=== PATIENT | male | born 1940 | race Two or more races ===

== ENCOUNTER 2025-01-15 06:39 | Emergency (ER) | payer OTHER ==
[~2025-01-15] VITALS: Ht 188 cm; Wt 116.6 kg
[2025-01-15 06:58] VITALS: TEMP 97.7
[2025-01-15 07:04] LABS: PLATELET COUNT (AUTO) 442 K/uL (150-450); RED BLOOD CELL COUNT(AUTO) 4.29 MIL/uL (4.5-6.0); RED CELL DISTRIBUTION WIDTH 14.4 % (11.5-15.0); WHITE BLOOD COUNT (AUTO) 8.7 K/uL (4.3-11.0)
[2025-01-15 07:15] LABS: CALCIUM, SERUM 8.5 mg/dL (8.5-10.1); CREATININE 2.9 mg/dL (0.6-1.3); INR 1.01 (0.91-1.10); SODIUM SERUM 137 mmol/L (136-145); UREA NITROGEN, BLOOD 56 mg/dL (7-18)
[2025-01-15 07:28] LABS: NT-PRO BNP 474 pg/mL (0-125)
[2025-01-15] MEDS ORDERED: LISI40TA13 GT (08:33)
[2025-01-15] MEDS ORDERED: ISOS10TA2 GT (08:33)
[2025-01-15] MEDS ORDERED: AMIN30LI66 GT (08:33)
[2025-01-15] MEDS ORDERED: FAMO20TA8 GT (08:33)
[2025-01-15] MEDS ORDERED: BISA10SU11 RC (08:33)
[2025-01-15] MEDS ORDERED: ZINC50TA69 GT (08:33)
[2025-01-15] MEDS ORDERED: ACET-2030 GT (08:33)
[2025-01-15] MEDS ORDERED: ATOR40TA GT (08:33)
[2025-01-15] MEDS ORDERED: HYDR100T27 GT (08:33)
[2025-01-15] MEDS ORDERED: NA P133E RC (08:33)
[2025-01-15] MEDS ORDERED: ASCO-352 GT (08:33)
[2025-01-15] MEDS ORDERED: MELA3TAB41 GT (08:33)
[2025-01-15] MEDS ORDERED: ACET-868 GT (08:33)
[2025-01-15] MEDS ORDERED: MAGN400O6 GT (08:33)
[2025-01-15] MEDS ORDERED: MULT-213 GT (08:33)
[2025-01-15] MEDS ORDERED: CLOP75TA15 GT (08:33)
[2025-01-15] MEDS ORDERED: DOCU100T2 GT (08:33)
[2025-01-15] MEDS ORDERED: ASPI-1169 GT (08:33)
[2025-01-15] MEDS ORDERED: HYDR-3642 GT (08:33)
[2025-01-15] MEDS ORDERED: CLOPIDOGREL BISULFATE 75 MG TABLET ONE (09:44)
[2025-01-15] MEDS ORDERED: FAMOTIDINE (20 MG) 20 MG TABLET ONE (09:45)
[2025-01-15] MEDS ORDERED: ASPIRIN 81 MG TAB.CHEW ONE (09:45)
[2025-01-15] MEDS: ASPIRIN 81 MG TAB.CHEW GT SCH (10:00)
[2025-01-15] MEDS: FAMOTIDINE (20 MG) 20 MG TABLET GT SCH (10:00)
[2025-01-15] MEDS: CLOPIDOGREL BISULFATE 75 MG TABLET GT SCH (10:05)
[2025-01-15] MEDS: ISOSORBIDE DINITRATE (20MG) 20 MG TABLET GT SCH (10:47)
[2025-01-15 11:23] VITALS: BP 102/70; O2SAT 94
[2025-01-15] MEDS ORDERED: ATORVASTATIN 40 MG TABLET GT SCH (22:00)
== END 2025-01-15 11:57 | disposition short-term general hospital (02) ==
LOC: ER 06:41
DX: R07.89 Other chest pain (principal); I10 Essential (primary) hypertension; E11.9 Type 2 diabetes mellitus without complications; E78.5 Hyperlipidemia, unspecified; I70.0 Atherosclerosis of aorta; Z79.82 Long term (current) use of aspirin; Z79.899 Other long term (current) drug therapy; Z86.73 Personal history of transient ischemic attack (TIA), and cerebral infarction without residual deficits; Z95.0 Presence of cardiac pacemaker
CPT/HCPCS: 36415; 71045-TC; 80048-TC; 83880; 84484-TC; 85025-TC; 85730-TC